=== PATIENT | female | born 1950 | race Caucasian/White ===

== ENCOUNTER → 2018-05-22 | Day surgery (SDC) | payer OTHER ==
[~2018-05-22] VITALS: Ht 154.9 cm; Wt 55.8 kg
[2018-05-22 07:25] VITALS: BP 145/74
== END | disposition home or self-care (01) ==
LOC: DS 06:48 → OR 10:00 → DS 10:00
PROC: 0FC98ZZ Extirpation of Matter from Common Bile Duct, Via Natural or Artificial Opening Endoscopic (ICD-10-PCS; principal; 2018-05-22)
DX: K80.50 Calculus of bile duct without cholangitis or cholecystitis without obstruction (principal); K21.9 Gastro-esophageal reflux disease without esophagitis; J44.9 Chronic obstructive pulmonary disease, unspecified; I10 Essential (primary) hypertension; E78.5 Hyperlipidemia, unspecified

== ENCOUNTER 2018-06-05 06:16 | Day surgery (SDC) | payer OTHER ==
[~2018-06-05] VITALS: Ht 154.9 cm; Wt 55.3 kg
[2018-06-05 06:36] VITALS: BP 143/79
[2018-06-05 16:09] VITALS: BP 132/52
== END 2018-06-05 13:10 | disposition home or self-care (01) ==
LOC: DS 06:16 → OR 08:30 → DS 13:10
PROVIDERS: Internal Medicine
PROC: 0FC98ZZ Extirpation of Matter from Common Bile Duct, Via Natural or Artificial Opening Endoscopic (ICD-10-PCS; principal; 2018-06-05 08:00)
DX: K80.50 Calculus of bile duct without cholangitis or cholecystitis without obstruction (principal); K21.9 Gastro-esophageal reflux disease without esophagitis; J43.9 Emphysema, unspecified; I10 Essential (primary) hypertension; F41.0 Panic disorder [episodic paroxysmal anxiety]; Z90.49 Acquired absence of other specified parts of digestive tract; Z85.118 Personal history of other malignant neoplasm of bronchus and lung; Z87.891 Personal history of nicotine dependence; Z68.23 Body mass index [BMI] 23.0-23.9, adult
CPT/HCPCS: 43262; C1769; J1610; J2250; J2405; J2550; J2765; J3010; Q9967